=== PATIENT | male | born 1975 | race Caucasian/White ===

== ENCOUNTER 2019-10-22 15:00 | Observation (INO) ==
[2019-10-22] MEDS ORDERED: PHENERGAN IV PRN (15:56)
[2019-10-22 16:53] LABS: BASO# 0.01 X1000 (0.0-0.2); BASO% 0.1 % (0.0-0.8); EOS# 0.03 X1000 (0.0-0.7); EOS% 0.3 % (0.0-10.0); HEMATOCRIT 48.5 % (42.0-52.0); HEMOGLOBIN 15.7 g/dL (14.0-18.0); IMM GRAN# 0.03 X1000 (0.0-0.04); IMM GRAN% 0.3 % (0.0-0.5); LYMPH# 1.19 X1000 (1.2-3.4); LYMPH% 12.9 % (20.5-51.1); MCH 28.3 PG (27-31); MCHC 32.4 g/dL (33-37); MCV 87.4 FL (81-99); MONO# 0.71 X1000 (0.11-0.59); MONO% 7.7 % (1.7-9.3); MPV 10.2 FL (7.4-10.4); NEUT# 7.25 X1000 (1.4-6.5); NEUT% 78.7 % (42.2-75.2); PLT 226 X1000 (130-400); RBC 5.55 XMIL (4.7-6.1); RDW 14.3 % (11.5-14.5); WBC 9.22 X1000 (4.8-10.8)
[2019-10-22] MEDS: PROTONIX IV SCH (16:58)
[2019-10-22] MEDS: NS 1,000 ML IV SCH (16:59)
[2019-10-22 17:12] LABS: AGAP 14; BUN 9 mg/dL (8-22); CHLORIDE 98 mmol/L (98-107); COSMO 272; CREATININE 0.9 mg/dL (0.7-1.2); ESTIMATED GFR > 60; GLUCOSE 97 mg/dL (70-104); POTASSIUM 3.8 mmol/L (3.5-5.1); SODIUM 137 mmol/L (136-145); TCO2 25 mmol/L (25-35)
--- NOTE | 2019-10-22 19:39 | Diag Imaging Result Doc PS360 ---
EXAM: CT ABD/PELVIS W/IV CONT ONLY INDICATION: Abdominal pain TECHNIQUE: This exam was performed using automated exposure control, adjustment of mA or kV according to patient size, and/or use of iterative reconstruction technique. COMPARISON: None. FINDINGS: There is a tiny cystic appearing focus at the posterior aspect of the right hepatic lobe. The liver is essentially unremarkable, otherwise. The gallbladder is partially contracted and is unremarkable, otherwise. The spleen, pancreas, and adrenal glands are unremarkable. There is a small simple appearing renal cysts at the upper pole of the right kidney. The kidneys are unremarkable, otherwise. The urinary bladder is partially collapsed and is unremarkable, otherwise. There are bilateral inguinal hernias that contain only fat. There are multiple moderately distended fluid-filled loops of small bowel seen throughout the abdomen and there is also mild small bowel wall thickening. The small bowel becomes decompressed at the right lower quadrant. However, there is no abrupt transition point. Although partial obstruction cannot completely be excluded, this may represent ileus related to enteritis. There is evidence of a prior appendectomy. There is liquid stool in the colon and rectum suggesting possible diarrheal illness. No colonic wall thickening is appreciated. No free abdominal gas is appreciated. There are a few small shotty lymph nodes with surrounding haziness at the root of the mesentery that are nonspecific but often associated with chronic mesenteric panniculitis. IMPRESSION: 1.Multiple moderately fluid distended loops of small bowel as well as mild small bowel wall thickening with no abrupt transition point. Consider ileus related to enteritis. However, partial obstruction cannot completely be excluded. 2.Small shotty lymph nodes with surrounding haziness at the root of the mesentery, nonspecific but often associated with mesenteric panniculitis. 3.Liquid stool in the colon and rectum suggesting a possible diarrheal illness. Electronically signed by Renzo Springer 10/22/2019 7:36 PM
--- NOTE | 2019-10-22 20:12 | HISTORY AND PHYSICAL ---
CHIEF COMPLAINT: Nausea, vomiting, abdominal pain and distention since 2 days ago. HISTORY OF PRESENT ILLNESS: This is a 44-year-old white gentleman came to our office with the above symptoms. He has not been holding anything down since yesterday. He was dehydrated. Flat/upright of the abdomen with chest showed multiple air-fluid levels consistent with bowel obstruction. He had a prior history of appendix scar. Basically, he is admitted to the hospital for impending dehydration, rule out bowel obstruction. Patient was started on IV fluids and Zofran. CT scan of the abdomen and pelvis was done. As a result, a hospital admission was warranted. PAST MEDICAL HISTORY: None. PAST SURGICAL HISTORY: Right knee replacement by Dr. Vines, appendectomy. MEDICATIONS: None. ALLERGIES: Not known. SOCIAL HISTORY: second time, 5 children. Smoking 1 pack a day. Socially drinks alcohol. FAMILY HISTORY: Father of complications from diabetes with multiorgan failure. Mom is alive with diabetes, hypertension, stroke. REVIEW OF SYSTEMS: HEENT: No headache, no vision problem. No earache. No sore throat. Neck: No goiter. No lymphadenopathy. No bruit. Cardiopulmonary: No chest pain, shortness of breath, PND, orthopnea. Gastrointestinal: Has nausea, vomiting, abdominal pain. He is still passing flatus and liquid stool. : No symptoms. Extremities: No swelling of legs. No joint pain. Neurologic: No focal symptoms or weakness. PHYSICAL EXAMINATION: VITAL SIGNS: Height 6 feet 2, weight 228 pounds. Temperature is 98.4, pulse 103. Vitals are stable. HEENT: Atraumatic, normocephalic. Pupils equal, react to light. TMs are normal. Nose and throat within normal limits. Dry mucous membranes. NECK: Supple. No lymphadenopathy CHEST: Bilateral air entry. CARDIOVASCULAR: Heart sounds are regular. ABDOMEN: Belly is soft, distended. Bowel sounds are present. Abdominal scar present from the appendix. RECTAL: Deferred. EXTREMITIES: No peripheral edema, cyanosis, clubbing. Scar over the right knee was seen. INVESTIGATIONS: White cell count 9.2, hematocrit 48, platelets 226. SMA 7 is normal. ASSESSMENT AND PLAN: A 44-year-old white gentleman admitted to the hospital with nausea, vomiting, and abdominal pain with prior history of appendix scar. X-rays consistent with small bowel obstruction versus ileus. Plan is n.p.o. and IV fluids, Zofran for nausea, IV Protonix, stool cultures and DVT and GI prophylaxis with Lovenox and Protonix. Follow up on CT scan of the abdomen and pelvis, and based on that, further recommendations will be followed. cc: Raulito Fallon MD
[2019-10-22] MEDS: LOVENOX SUBQ SCH (21:02)
[2019-10-23] MEDS: NS 1,000 ML IV SCH ×2 (04:39→17:36)
--- NOTE | 2019-10-23 08:19 | Diag Imaging Result Doc PS360 ---
EXAM: ABDOMEN FLAT/UPRIGHT 10/23/2019 HISTORY: pain TECHNIQUE: Flat and upright abdomen COMMENT: There are air-fluid levels in distended small bowel loops as well as in the colon which is not distended. There are no previous studies available for comparison. Some residual contrast is present in the urinary bladder which is almost completely empty. There are phleboliths in the pelvis. There is no evidence of organomegaly or mass in the stomach is not distended. IMPRESSION: Ileus versus partial small bowel obstruction. Electronically signed by William Cunha 10/23/2019 8:16 AM
[2019-10-23] MEDS: NICODERM PATCH TD SCH (10:33)
--- NOTE | 2019-10-23 12:50 | Diag Imaging Result Doc PS360 ---
EXAM: GI/SW/SM BOWEL 10/23/2019 HISTORY: SBO TECHNIQUE: Air contrast upper GI series and small bowel follow-through. 21 images, two minutes 36 seconds fluoroscopy time, 3995.1 cGy. COMMENT: The patient is able to swallow barium without difficulty. The esophagus is normal in appearance. There is no evidence of reflux, stricture, mucosal ulceration or hiatal hernia. There is no evidence of fixed intraluminal filling defect. The stomach is normal in appearance although it empties very rapidly. The duodenal bulb and the remainder of the duodenum are within normal limits. There is dilatation of multiple loops in the jejunum. Some slight mucosal thickening is present in some of these loops. The distal ileum is normal in caliber. There is barium in the colon by two hours. IMPRESSION: No evidence of obstruction. The possibility of stricture and/or enteritis cannot be entirely excluded. Electronically signed by William Cunha 10/23/2019 12:48 PM
--- NOTE | 2019-10-23 16:01 | PROGRESS NOTE ---
DATE: 10/23/2019 SUBJECTIVE: The patient is passing gas. Two cultures obtained. Belly is less distended. Decrease in nausea. PHYSICAL EXAMINATION: Vital Signs: On examination temp is 98 degrees, pulse 65. Vitals are stable. HEENT exam: Within normal limits. Neck: Is supple. Chest: Is clear. Heart: Sounds are regular. Abdomen: Belly is soft. Good bowel sounds. No signs of pain. CBC and SMA-7 are normal. Stool occult blood negative. white blood cell count none seen. Clostridium difficile toxin is negative. ASSESSMENT AND PLAN: Partial small bowel obstruction, status post appendectomy. We will follow small bowel follow-through scan by Dr. Mendez and DVT GI prophylaxis and if everything opens up slowly, consider liquid diet and then hopefully discharge over the weekend. LEVEL OF DOCUMENTATION: 25 minutes. cc: Raulito Fallon MD MTDD
[2019-10-23] MEDS: SODIUM CHLORIDE 0.9% INJ SCH (17:11)
[2019-10-23] MEDS: PROTONIX IV SCH (17:12)
--- NOTE | 2019-10-23 20:25 | GENERAL SURGERY CONSULTATION ---
DATE: 10/23/2019 CHIEF COMPLAINT: Nausea, vomiting, diarrhea, 2 days, with some abdominal cramping. REASON FOR CONSULTATION: Possible partial bowel obstruction. HISTORY OF PRESENT ILLNESS: This is a 44-year-old gentleman who has had an appendectomy in the past, who was seen by Dr. Fallon as an outpatient with a couple day history of nausea, vomiting, and diarrhea. Outpatient x-ray showed air/fluid levels concerning for bowel obstruction. He was admitted and I see him in Radiology now as he undergoes a small bowel follow-through. He did have a CT scan that suggested the possibility of the same versus possible enteritis. I do not believe he has ever had a colonoscopy, but otherwise prior to a couple days ago, he has been in his usual state of health. MEDICAL HISTORY: None. SURGICAL HISTORY: Right knee replacement and appendectomy. SOCIAL HISTORY: He does smoke, does drink, a pack a day and socially. He is . Has 5 children. FAMILY HISTORY: Reviewed and negative for cancer. REVIEW OF SYSTEMS: A 10 point review of systems was performed and negative, otherwise as mentioned in his HPI. MEDICATIONS: He takes no medications daily. PHYSICAL EXAMINATION: Vital signs: On exam, he was afebrile, pulse 65, blood pressure 123/83, oxygen saturation 100%. General: He is alert, in no acute distress. HEENT: No scleral icterus. No cervical mass. Cardiovascular: Normal rate. Pulmonary: No increased work of breathing. Abdomen: Soft, nontender, nondistended. Integument: Warm and dry. Psychiatric: Appropriate affect. Neurologic: No gross deficits. LABS: White count was 9, hematocrit was 48, platelets 226,000. Creatinine 0.9. I reviewed his imaging as well as small bowel follow-through that showed transit of contrast into the colon and no evidence of obstruction. ASSESSMENT AND PLAN: This is a 44-year-old gentleman with likely gastroenteritis. It is possible that he has some degree of partial obstruction. I would recommend n.p.o., intravenous hydration, and correction of electrolytes. We will hold off on nasogastric tube for now, but if he were to continue to vomit, he will need this placed, and we will follow along, but doubtful he will progress to need surgery. I discussed the plan with the patient. I would recommend outpatient colonoscopy after this has resolved. cc: MD Raulito Toure MD
[2019-10-23] MEDS: LOVENOX SUBQ SCH (20:55)
[2019-10-24] MEDS: NICODERM PATCH TD SCH (10:18)
[2019-10-24] MEDS ORDERED: PNEUMOVAX 23 IM ONE (10:45)
--- NOTE | 2019-10-24 12:26 | PROGRESS NOTE ---
DATE: 10/24/2019 Mr. Sykes is feeling better. Abdomen is soft. He is passing some gas. He was seen by Dr. Mendez who does not think he has small-bowel obstruction. He was on clear liquids. We will step up to the full liquids. -4 cc: MD Raulito Rasheed MD
--- NOTE | 2019-10-24 13:52 | GENERAL SURGERY PROGRESS NOTE ---
DATE: 10/24/2019 SUBJECTIVE: Continues to have bowel function. He says he is hungry. No abdominal pain. No fevers. No tachycardia. OBJECTIVE: Vital signs: Blood pressure 134/80, oxygen saturation 100 percent. General: Alert. Cardiovascular: Normal rate. Abdomen: Soft, nontender, nondistended. DIAGNOSTIC DATA: No new labs this morning. ASSESSMENT AND PLAN: A 44-year-old gentleman, most likely the gastroenteritis. It is possible this was some degree of partial obstruction but his small-bowel follow-through showed good flow of contrast in the colon probably. From a surgical perspective, no plans for intervention. It would be reasonable to advance his diet and allow him to go home when cleared from medical perspective. cc: MD Raulito Toure MD
[2019-10-24 15:38] VITALS: BP 118/79
[2019-10-24] MEDS: SODIUM CHLORIDE 0.9% INJ SCH (16:08)
[2019-10-24] MEDS: PROTONIX IV SCH (16:08)
--- NOTE | 2019-10-26 19:58 | DISCHARGE SUMMARY ---
ADMISSION DATE: 10/22/2019 DISCHARGE DATE: 10/24/2019 CONSULTATIONS: Dr. Doyle Mendez. DISCHARGING DIAGNOSIS: Abdominal pain due to subacute small bowel obstruction with gastroenteritis and ileus. SECONDARY DIAGNOSES: History of right knee replacement, appendectomy. BRIEF HISTORY: Please see the H and P that was done on 10/22/2019. In brief, he is a 44-year-old white gentleman with known history of appendectomy prior who came into our office with nausea, vomiting, abdominal pain, constipation, passing liquid stool. He is not holding anything down for the last 2 days. X-ray showed subacute bowel obstruction. HOSPITAL COURSE: The patient was given IV fluids and Zofran for nausea. DVT and GI prophylaxis was initiated. Follow up on the laboratory data was unremarkable. Follow up on the next day x- rays partial resolution of ileus and bowel obstruction. He is passing the gas. Small bowel follow-through did not show any evidence of obstructive pathology. Labs as follows CBC: White cell count 9.3, hematocrit 48, platelets 226,000. SMA 7 is normal. Stool: White cells none seen. Clostridium difficile toxin is negative. Stool for occult blood negative. Cultures were negative. CT scan of the abdomen and pelvis showed multiple distended loops of small bowel and cannot exclude partial small bowel obstruction. Nonspecific mesenteric panniculitis noted. On the following day he is tolerating the diet very well. Dr. Mendez did not see any evidence of surgical intervention at this time. It looks like some viral gastroenteritis illness. The patient was discharged in a stable condition by Dr. Camp. DISCHARGE INSTRUCTIONS: 1. He is on Zofran for nausea. 2. Soft diet and Culturelle. 3. Follow up in our office next week. cc: MD Lauren Berg MD [facility]
== END 2019-10-24 16:45 | disposition home or self-care (01) | DRG 392 ==
LOC: DIRADM 15:00 → INTOOBSV 15:00 → 4N 15:42
PROVIDERS: ADMIT Internal Medicine; ATTEND Internal Medicine